=== PATIENT | female | born 2000 | race African-American/Black ===

== ENCOUNTER 2022-02-03 17:43 | Emergency (ER) | payer OTHER ==
[2022-02-03 18:11] VITALS: BP 135/93
[2022-02-03 19:06] LABS: RAPID STREP SCREEN Negative (Negative)
== END 2022-02-03 19:04 | disposition left against medical advice (07) ==
LOC: ED 17:43
DX: Z53.21 Procedure and treatment not carried out due to patient leaving prior to being seen by health care provider (principal)
CPT/HCPCS: 87070; 87077; 87430

== ENCOUNTER 2022-02-04 01:21 | Emergency (ER) | payer OTHER ==
[2022-02-04 04:30] LABS: RAPID STREP SCREEN Negative (Negative)
--- NOTE | 2022-02-04 04:52 | ED Physician Documentation ---
History of Present Illness - Stated complaint Stated Complaint: SORE THROAT - Chief complaint Chief Complaint: Heent - History obtained from History obtained from: Patient - Additonal information Additional information: 21yF preveiously healthy p/w several days of sore throat, L neck pain radiating to L ear with associated fullness. denies fever, cough, soa, nasal congestion or discharge. Review of Systems Ten Systems: 10 systems reviewed and negative Constitutional: denies: Fever, Chills Ears: reports: Ear pain Nose: denies: Rhinorrhea / runny nose, Sinus pressure / pain Throat: reports: Sore throat PD PAST MEDICAL HISTORY - Past Medical History Past Medical History: No Cardiovascular: None Respiratory: None Neuro: None Endocrine/Autoimmune: None GI: None [employer]: None : None HEENT: None Psych: None Musculoskeletal: None Derm: None - Past Surgical History Past Surgical History: No - Present Medications Home Medications: Ambulatory Orders Medication Instructions Recorded Confirmed Ibuprofen [Motrin] 600 mg PO Q6H PRN #15 tab 02/04/22 - Allergies Allergies/Adverse Reactions: Allergies Allergy/AdvReac Type Severity Reaction Status Date / Time No Known Drug Allergies Allergy Verified 02/03/22 18:11 - Social History Does the pt smoke?: No Smoking Status: Never smoker Does the pt drink ETOH?: No Does the pt have substance abuse?: No - Immunizations Immunizations are current?: Yes - POLST Patient has POLST: No PD ED PE NORMAL - Vitals Vital signs reviewed: Yes - General General: Alert and oriented X 3, No acute distress, Well developed/nourished - HEENT HEENT: Atraumatic, PERRL, EOMI, Ears normal, Moist mucous membranes, Pharynx benign, Other (no white exudates. 1+ tonsillar erythema) - Neck Neck: Supple, no meningeal sign, Other (BL anterior cervical adenopathy) - Cardiac Cardiac: RRR - Respiratory Respiratory: No respiratory distress, Clear bilaterally Results - Vitals Vitals: Vital Signs - 24 hr 02/04/22 01:35 Temperature 37.8 C Heart Rate 73 Respiratory 15 Rate Blood Pressure 121/80 O2 Saturation 100 Oxygen O2 Source Room air - Labs Labs: Laboratory Tests 02/04/22 04:16 Group A Strep Rapid Negative PD MEDICAL DECISION MAKING - ED course ED course: 21yF p/w sore throat, found to have negative strep test. however centor criteria relatively high - culture sent and advised patient we may call to place her on antibiotics if strep culture comes up positive. for now, recommending symptomatic care and pcp f/u. return precautions given. Departure - Departure Disposition: 01 Home, Self Care Clinical Impression: Sore throat Condition: Good Instructions: Sore Throats Self Care Prescriptions: Ibuprofen [Motrin] 600 mg PO Q6H PRN #15 tab PRN Reason: Pain Comments: You were seen in the ED for sore throat, ear and neck pain. Your initial strep test was negative, and we will call you if the other test is positive and you need further medicine. Please follow up with your primary care provider. A paper prescription for ibuprofen was printed for you. Make sure you take it when you leave.
[2022-02-04 04:57] VITALS: BP 122/78
--- NOTE | 2022-02-05 11:32 | ED Physician Documentation ---
ED Addendum - Addendum Addendum: 02/05/22 11:32 Patient seen 48 hours ago. Initial strep negative subsequent culture has grown group C. Penicillin electronically prescribed to the [facility]. Nursing staff tasked with notifying patient.
== END 2022-02-04 05:07 | disposition home or self-care (01) ==
LOC: ED 01:21
DX: J02.9 Acute pharyngitis, unspecified (principal)
CPT/HCPCS: 87070; 87430; 99282; 99283